=== PATIENT | male | born 1975 | race African-American/Black ===

== ENCOUNTER 2020-12-11 11:47 | Emergency (ER) | payer MEDICARE, MEDICAID ==
[~2020-12-11] VITALS: Ht 190.5 cm; Wt 139.0 kg
[~2020-12-11 11:47] MED LIST: AMLO-150 PO; BUSP30TA PO; CARV3.122 PO; CARV6.2512 PO; CARVEDILOL PO; DOXA2TAB9 PO; ERGO500017 PO; FURO40TA6 PO; GABA800T5 PO; HYDR-1067 PO; HYDR-3342 PO; INSU100V8 SQ; LOSA50TA14 PO; LOSARTAN PO; METF10002 PO; OMEP-110 PO; OMEPR PO; PIOG15TA66 PO; POTA20PA31 PO; QUET100T4 PO; QUET300T7 PO
--- NOTE | 2020-12-11 12:00 | NUR ---
BIB EMS FROM HOME. D/C 11/30 FROM [facility] 2/2 SEPSIS AND KIDNEY DESEASE. GIRLFRIEND AT BEDSIDE RPTS PT "JUST NOT DOING WELL" GEN MALAISE, PT DENIES PAIN OR ANY COMPLAINTS OF N/V/D. DR RODAS AT BEDSIDE. PT ASSESSMENT POC DISCUSSED AND QUESTIONS ANSWERED. ALL MONITORS IN PLACE AND CALL LIGHT W/I REACH. VSS
[2020-12-11 12:37] LABS: BASOPHILS % (AUTO) 1 % (0-1); EOSINOPHILS % (AUTO) 2 % (1-7); LYMPHOCYTES % (AUTO) 22 % (22-44); MEAN CORPUSCULAR HEMOGLOBIN 29.6 pg (27.5-34.5); MEAN CORPUSCULAR HGB CONC 33.2 g/dL (33.2-36.2); MEAN PLATELET VOLUME 8.5 fL (7.4-10.4); MONOCYTES % (AUTO) 7 % (2-9); NEUTROPHILS % (AUTO) 69 % (42-75); PLATELET COUNT 216 x10^3/uL (130-400); RED BLOOD COUNT 2.98 x10^6/uL (4.38-5.82); RED CELL DISTRIBUTION WIDTH 17.1 % (9.4-14.8)
[2020-12-11 12:38] LABS: MD NO
[2020-12-11 12:46] LABS: ALBUMIN 2.8 g/dL (3.4-5.0); ANION GAP 8 mmol/L (5-15); CALCIUM 8.4 mg/dL (8.5-10.1); CHLORIDE 107 mmol/L (98-107); CREATININE 2.05 mg/dL (0.7-1.3)
[2020-12-11 12:50] LABS: TROPONIN I < 0.015 ng/mL (0.000-0.045)
--- NOTE | 2020-12-11 12:50 | NUR ---
IVF INFUSION COMPLETED, BP IMPROVED AND PT MORE ANIMATED. URINAL GIVEN.
[2020-12-11] MEDS ORDERED: SODIUM CHLORIDE FLUSH 10ML SYR IVF ONE (13:00)
[2020-12-11] MEDS ORDERED: SODIUM CHLORIDE 0.9% 1,000ML IVBOLUS ONE (13:00)
--- NOTE | 2020-12-11 13:12 | NUR ---
URINE COLLECTED AND SENT TO LAB. PT VSS, NAD NOTED.
[2020-12-11 13:19] LABS: MICROSCOPIC NOT IND
[2020-12-11 14:05] VITALS: BP 157/85
--- NOTE | 2020-12-11 14:05 | NUR ---
DR RODAS AT BEDSIDE. PLAN FOR D/C DISCUSSED AND QUESTIONS ANSWERED
--- NOTE | 2020-12-11 14:21 | NUR ---
Patient/Caregiver given discharge instructions and they have confirmed that they understand the instructions. Patient ambulatory with steady gait.
== END 2020-12-11 14:22 | disposition home or self-care (01) ==
LOC: ED 12:55
DX: E11.22 Type 2 diabetes mellitus with diabetic chronic kidney disease (principal); N18.9 Chronic kidney disease, unspecified; I12.9 Hypertensive chronic kidney disease with stage 1 through stage 4 chronic kidney disease, or unspecified chronic kidney disease; E86.0 Dehydration; E87.5 Hyperkalemia; R07.89 Other chest pain; R53.1 Weakness; R94.31 Abnormal electrocardiogram [ECG] [EKG]; Z86.73 Personal history of transient ischemic attack (TIA), and cerebral infarction without residual deficits
CPT/HCPCS: 36415; 71045; 80048; 81003; 82040; 84484; 85025; 93005; 99285; J7030